=== PATIENT | female | born 1990 | race Caucasian/White ===

== ENCOUNTER 2025-02-03 15:40 | Emergency (ER) | payer SELFPAY ==
[~2025-02-03] VITALS: Ht 177.8 cm; Wt 68.0 kg
[2025-02-03 16:27] VITALS: BP 137/75
[2025-02-03] MEDS: LIDOCAINE HCL 1% 20 ML VIAL TP ONE (17:00)
[2025-02-03] MEDS ORDERED: LET TOPICAL SOLUTION 8 ML UDC ONE (17:01)
[2025-02-03] MEDS ORDERED: LIDOCAINE HCL 1% 20 ML VIAL ONE (17:01)
[2025-02-03] MEDS ORDERED: TDAP DIPH,PERTUSS,TET VAC/PF 0.5 ML DISP.SYRIN IM ONE (17:01)
[2025-02-03] MEDS: LET TOPICAL SOLUTION 8 ML UDC TP ONE (17:05)
[2025-02-03] MEDS: TDAP DIPH,PERTUSS,TET VAC/PF 0.5 ML DISP.SYRIN IM ONE (17:09)
[2025-02-03] MEDS ORDERED: NEOMY/BACITRA/POLYMYXIN B OINT UD PACKET TP ONE (18:40)
[2025-02-03] MEDS ORDERED: HYDR-3972 PO (18:48)
[2025-02-03] MEDS ORDERED: CEPH500C2 PO (18:51)
[2025-02-03] MEDS: NEOMY/BACITRA/POLYMYXIN B OINT UD PACKET TP ONE (19:00)
[2025-02-03] MEDS ORDERED: ALBU8.5H8 INH (19:03)
[2025-02-03] MEDS: HYDROCODONE/APAP 5-325MG TABLET PO ONE (19:04)
[2025-02-03 19:12] VITALS: BP 130/72; TEMP 208; O2SAT 99
== END 2025-02-03 19:05 | disposition home or self-care (01) ==
LOC: ER 15:40
DX: S61.011A Laceration without foreign body of right thumb without damage to nail, initial encounter (principal); J45.909 Unspecified asthma, uncomplicated; Z76.0 Encounter for issue of repeat prescription; Z91.010 Allergy to peanuts; Z91.018 Allergy to other foods; W26.0XXA Contact with knife, initial encounter; Y93.G3 Activity, cooking and baking; Y92.89 Other specified places as the place of occurrence of the external cause; Y99.8 Other external cause status
CPT/HCPCS: 12002; 90471; 90715; 99284; J3490; A4606; A4663